=== PATIENT | female | born 1990 | race Caucasian/White ===

== ENCOUNTER 2025-03-06 16:21 | Emergency (ER) | payer MEDICAID, SELFPAY ==
[2025-03-06 16:29] VITALS: BP 129/82; PULSE 102; RESP 20; TEMP 38.2; O2SAT 95
--- NOTE | 2025-03-06 16:33 | XR_ITS ---
Examination: PA lateral chest 2 views TECHNIQUE: Upright PA and lateral chest 2 views Date and time: March 06, 2025 7051 hours Comparison February 03, 2022 INDICATIONS: Coughing and fever shortness of breath 2 weeks FINDINGS: Significant left lower lobe pneumonia Normal heart size Right lung clear IMPRESSION: Significant left lower lobe pneumonia
[2025-03-06] MEDS: IBUPROFEN TAB 400 MG TABLET 800 MG PO (16:41)
--- NOTE | 2025-03-06 17:18 | EDNOTE_ITS ---
Upper Respiratory Inf. RME/HPI General Chief Complaint: Flu Like Symptoms Stated Complaint: fever, cough, shortness of breath, cough Time Seen by Provider: 03/06/25 16:33 Arrival date/time: 03/06/25 16:21 34-year-old female presents to the Emergency Department today for complaints of fever, cough, congestion patient reports symptoms ongoing for the last 3 to 4 days Limitations: no limitations Related Data Home Medications ?Medication ?Instructions ?Recorded ?Confirmed drospirenone 3 mg-ethinyl 1 tab PO QDAY 01/13/2202/18 estradiol 0.03 mg tablet (Yaneth) levothyroxine 75 mcg tablet 75 mcg PO QDAY 02/03/22 cefpodoxime 200 mg tablet 200 mg PO BID 02/17/2202/18 Previous Rx's ?Medication ?Instructions ?Recorded ibuprofen 800 mg tablet 800 mg PO TID PRN pain #30 t abs 01/08/22 hydrocodone 5 mg-acetaminophen 325 1 tab PO Q6H PRN pa in #12 tabs 02/06/22 mg tablet nicotine 7 mg/24 hr daily 7 mg top QDAY #28 ea 2 transdermal patch amoxicillin 875 mg-potassium 1 tab PO Q12H #20 tabs clavulanate 125 mg tablet ibuprofen 600 mg tablet 600 mg PO Q8H PRN pain #30 t abs 03/01/22 albuterol sulfate 90 mcg/actuation 2 puff inhalation Q 6H PRN 03/06/25 aerosol inhaler (Ventolin HFA) shortness of breath or wheezing #8.5 grams azithromycin 500 mg tablet See Rx Instructions PO .COM PLEX #6 03/06/25 tabs benzonatate 100 mg capsule 100 mg PO TID #14 caps 01/25 ibuprofen 600 mg tablet 600 mg PO Q6H #30 tabs 03/06 Allergies Allergy/AdvReac Type Severity Reaction Status Date / Time adhesive tape Allergy Mild Redness of Verified 03/06/25 16:24 Skin Review of Systems Review of Systems Systems Reviewed: All systems reviewed, normal except as documented Constitutional Constitutional: Reports system reviewed and no additional complaints, except as documented, Denies fever(s) and Denies headache(s) Eyes Eyes: Reports system reviewed and no additional complaints, except as documented and Denies blurry vision ENT Ears, Nose, Mouth, and Throat: Reports system reviewed and no additional complaints, except as documented, Denies headache(s), Denies nasal congestion and Denies nasal discharge Cardiovascular Cardiovascular: Reports system reviewed and no additional complaints, except as documented, Denies chest pain and Denies dyspnea Respiratory Respiratory: Reports system reviewed and no additional complaints, except as documented, Denies chest congestion, Denies cough and Denies dyspnea Gastrointestinal Gastrointestinal: Reports system reviewed and no additional complaints, except as documented and Denies abdominal pain Integumentary/Breasts Skin/Breast: Reports system reviewed and no additional complaints, except as documented and Denies rash Neurologic Neurologic: Reports system reviewed and no additional complaints, except as documented, Reports as per HPI and Denies headache(s) Past Medical History Past Medical History NEUROLOGIC: Negative Neurological Disorders, Cerebrovascular Accident, Alzheimer's Disease, Seizures or Epilepsy CARDIAC: Negative Cardiac Disorders, Myocardial Infarction, Angina, Congestive Heart Failure, Edema, Cellulitis (BRUISING TO RIGHT LEG THIGH HAS CAST TO RIGHT ANKLE FOR THIS PROC), Hypertension or Varicose Veins RESPIRATORY: Negative Chronic Obstructive Pulmonary Disease (COPD), Emphysema, Tuberculosis or Pulmonary Embolism GASTROINTESTINAL: Positive Gastrointestinal Disorders and Obesity; Negative Liver Cancer, Hepatitis or Pancreatic Cancer GENITOURINARY: Negative Genitourinary Disorders or Renal Disease REPRODUCTIVE: Positive Previous Pregnancies MUSCULOSKELETAL: Positive Musculoskeletal Disorders and Fractures (RIGHT ANKLE); Negative Muscular Dystrophy or Bone Cancer ENT: Negative Deafness ENDOCRINE: Positive Endocrine Disorders and Hypothyroidism; Negative Diabetes Mellitus Type 1 or Diabetes Mellitus Type 2 HEMATOLOGIC: Negative Blood Disorders or Clotting Problems OTHER HISTORY: Positive Hospitalization (02/06/2022 d/t UTI, KIDNEY INFECTION) and Falls (01/07/2022); Negative Autoimmune Disease, Down Syndrome, Developmental Delay, Shingles, Blood Transfusions, Blood Transfusion Reaction, Anesthesia Reactions, Chemotherapy, Radiation Therapy, MRSA, Human Immunodeficiency Virus (HIV), Chicken Pox or Cancer Family History FAMILY HISTORY: Positive Family Psychiatric Problems, Family Cancer and Family Surgery; Negative Family Respiratory Disorders, Family Cardiac Disorders, Family Gastrointestinal Problems or Family Anesthesia Reaction Surgical History SURGICAL: Positive Abdominal Surgery (Esophageal sphincter repair), Open Reduction Internal Fixation (RIGHT ANKLE-HAVE SCREWS X2 AND PLATES) and Section; Negative Pacemaker Social History SMOKING STATUS: Light (< 1 pack/day) SUBSTANCE USE: does not use ED Exam General Limitations: Present no limitations General appearance: Present alert and in no apparent distress Head Head exam: Present atraumatic, normocephalic and normal inspection Eye Eye exam: Present normal appearance, PERRL and EOMI; Absent conjunctival injection ENT ENT exam: Present normal exam, normal oropharynx and mucous membranes moist Neck Neck exam: Present normal inspection, full ROM and trachea midline Chest Chest inspection: Present normal inspection and symmetric chest wall rise Respiratory Respiratory exam: Present normal lung sounds bilaterally; Absent respiratory distress Cardiovascular Cardiovascular exam: Present regular rate, normal rhythm and normal heart sounds Abdominal Exam Abdominal exam: Present soft and normal bowel sounds; Absent distention, tenderness, guarding, rebound or rigidity Extremities Exam Extremities exam: Present normal inspection and full ROM Back Exam Back exam: Present normal inspection and full ROM Neurological Exam Neurological exam: Present alert, oriented X3 and CN II-XII intact Psychiatric Psychiatric exam: Present normal affect and normal mood Skin Skin exam: Present warm, dry, intact and normal color Course Quality Measures none Orders Category Date Time Status Bedside COVID-19 Antigen Test NOW Care 03/06/25 16:33 Completed Bedside Influenza A&B Antigen Test NOW Care 03/06/25 16:33 Completed XR chest 2V Stat Exams 03/06/25 16:33 Completed Ibuprofen Tab [Motrin Tab] Med 03/06/25 16:33 Discontinued 800 mg PO X1 ONE Lidocaine 1% 20 ml [Xylocaine 1% 20 ML] Med 03/06/25 17:18 Discontinued 2.1 ml INFL X1 ONE cefTRIAXone [Rocephin] Med 03/06/25 17:18 Discontinued 1,000 mg IM X1 ONE Vital Signs Vital signs: Vital Signs Temperature 100.7 F H 03/06/25 16:29 Pulse Rate 102 H 03/06/25 16:29 Respiratory Rate 20 03/06/25 16:29 Blood Pressure 129/82 03/06/25 16:29 Pulse Oximetry (%) 95 03/06/25 16:29 Oxygen Delivery Method Room Air 03/06/25 16:29 O2 saturation 95% on room air within normal limits Upper Respiratory Infection MDM Narrative MDM Narrative:: 34-year-old female presents to the Emergency Department today for complaints of fever, cough, congestion patient reports symptoms ongoing for the last 3 to 4 days On exam patient is low-grade temp despite this patient does not appear ill or toxic Imaging obtained as well as lab work lab works unremarkable Imaging consistent with pneumonia patient given injection of antibiotics here discharged home with antibiotics and antipyretics as well as medicine for the cough Explained to the patient should her symptoms persist or worsen she is to return for reevaluation patient states understanding Patient data External records reviewed:: [facility] previous records Clinical information provided by:: patient Social determinants that could affect healthcare access:: housing Patient has the following chronic illnesses:: See history How is presenting disease/condition affected by chronic disease/condition?: uneffected by Evaluation data The following diagnostics were reviewed and interpreted by me:: lab results and radiology exam(s) Lab and/or radiology exams considered but not ordered:: Labs radiology obtain Interpretation Summary: Reviewed by me Medications / Prescriptions Medications or Prescriptions considered but not ordered:: Given Medication administrations:: Medication Administration History Discontinued Medications Ceftriaxone Sodium (Ceftriaxone Sod Inj 1,000 Mg Vial) 1,000 mg IM X1 ONE Stop: 03/06/25 17:19 Last Admin: 03/06/25 17:37 Dose: 1,000 mg Documented By: Ibuprofen (Ibuprofen Tab 400 Mg Tablet) 800 mg PO X1 ONE Stop: 03/06/25 16:34 Last Admin: 03/06/25 16:41 Dose: 800 mg Documented By: Lidocaine HCl (Lidocaine Hcl 1% 20 Ml Vial) 2.1 ml INFL X1 ONE Stop: 03/06/25 17:19 Last Admin: 03/06/25 17:38 Dose: 2.1 ml Documented By: Given Consultations Consultation(s) initiated? (list below): No Diagnosis Upper Respiratory Differential Diagnosis: upper respiratory infection, otitis media, viral infection and bronchitis Most likely diagnosis given after review of the tests above:: pneumonia Admission Indicated Admission indicated?: not indicated Admission Request Was there a request for admission?: No Disposition Plan Disposition Plan: Discharge Discharge Attestation Discharge Attestation: The patient and all family members were given an opportunity to ask questions and understood the discharge instructions. Discharge instructions specifically effects, indications for sooner follow up or return to the emergency department, and the expected course of current diagnosis. Patient condition: Stable Discharge Plan Plan Patient Disposition: HOME (Self Care) Discharge Disposition comment: stable Prescriptions/Referrals Prescriptions/Med Rec: New azithromycin 500 mg tablet See Rx Instructions .ROUTE .COMPLEX Qty: 6 0RF Rx Instructions: take 500 mg today (day 1), then 250 mg for 4 days (days 2-5) benzonatate 100 mg capsule 100 mg PO TID Qty: 14 0RF ibuprofen 600 mg tablet 600 mg PO Q6H Qty: 30 0RF albuterol sulfate [Ventolin HFA] 90 mcg/actuation HFA aerosol inhaler 2 puff inhalation Q6H PRN (Reason: shortness of breath or wheezing) Qty: 8.5 0RF No Action ibuprofen 800 mg tablet 800 mg PO TID PRN (Reason: pain) Qty: 30 0RF amoxicillin-pot clavulanate 875-125 mg tablet 1 tab PO Q12H Qty: 20 0RF ibuprofen 600 mg tablet 600 mg PO Q8H PRN (Reason: pain) Qty: 30 0RF drospirenone-ethinyl estradiol [Yaneth] 3-0.03 mg tablet 1 tab PO QDAY levothyroxine 75 mcg tablet 75 mcg PO QDAY hydrocodone-acetaminophen 5-325 mg tablet 1 tab PO Q6H MDD 4 PRN (Reason: pain) Qty: 12 0RF nicotine 7 mg/24 hr Patch 24 Hour 7 mg top QDAY Qty: 28 3RF cefpodoxime 200 mg Tablet 200 mg PO BID Rx Instructions: must administer with a meal/food Referrals: Sebastian Jansen MD [Primary Care Provider] - 03/07/25 Problem List Clinical Impression: Pneumonia Patient/Caregiver Discharge Instructions Education Materials: ED Pneumonia (Adult) Additional Instructions: Please follow up with your primary care doctor in the next 24-48hrs for any worsening symptoms return here immediately Print Language: [place] Citizen Stand Alone Forms: Chantelle Award Info., Patient Portal Info Letter PA/CONTRACT ACCOUNTANT Supervising Physician PA/CONTRACT ACCOUNTANT Supervising Physician: dr elias
[2025-03-06] MEDS: cefTRIAXone SOD INJ 1,000 MG VIAL 1000 MG IM (17:37)
[2025-03-06] MEDS: LIDOCAINE HCL 1% 20 ML VIAL 2.1 ML INFL (17:38)
== END 2025-03-06 17:46 | disposition home or self-care (01) ==
PROVIDERS: Emergency Provider Emergency Medicine; PCP Family Medicine
DX: J18.9 Pneumonia, unspecified organism (principal)
CPT/HCPCS: 71046; 87400; 87811; 96372; 99283; J0696; J3490; A9270